=== PATIENT | female | born 1940 | race Caucasian/White ===

== ENCOUNTER 2023-10-19 00:21 | Inpatient (IN) | payer MEDICARE, OTHER ==
[2023-10-19] VITALS (7 sets, daily range): BP systolic 154–160; BP diastolic 69–74; TEMP 96.3–98.5; O2SAT 86–97
[~2023-10-19] VITALS: Ht 165.1 cm; Wt 79.5 kg
[2023-10-19] MEDS ORDERED: methylPREDNISolone SOD SUCC 125 MG/2 ML VIAL ONE (00:34)
[2023-10-19] MEDS: ALBUTEROL SULFATE 2.5 MG/3 ML NEBU NEB ONE ×2 (00:37→04:40)
[2023-10-19] MEDS: IPRATROPIUM BROMIDE 0.5 MG/2.5 ML NEBU NEB ONE ×2 (00:37→04:40)
[2023-10-19] MEDS ORDERED: IPRATROPIUM BROMIDE 0.5 MG/2.5 ML NEBU ONE ×2 (00:39→04:44)
[2023-10-19] MEDS ORDERED: ALBUTEROL SULFATE 2.5 MG/3 ML NEBU ONE ×2 (00:39→04:44)
[2023-10-19] MEDS: methylPREDNISolone SOD SUCC 125 MG/2 ML VIAL IV ONE (00:42)
[2023-10-19 00:46] LABS: BASOPHILS % (AUTO) 0.2 % (0.0-2.0); EOSINOPHILS % (AUTO) 0.4 % (0.0-7.0); HEMATOCRIT 32.2 % (31.2-41.9); HEMOGLOBIN 10.8 g/dL (10.9-14.3); LYMPHOCYTES # (AUTO) 1.6 K/uL (0.8-4.8); LYMPHOCYTES % (AUTO) 18.7 % (20.5-51.5); MEAN CORPUSCULAR HEMOGLOBIN 28.7 uug (24.7-32.8); MEAN CORPUSCULAR HGB CONC 33 g/dL (32.3-35.6); MEAN CORPUSCULAR VOLUME 86.1 fL (75.5-95.3); MONOCYTES # (AUTO) 1.2 K/uL (0.1-1.30); MONOCYTES % (AUTO) 14.2 % (0.0-11.0); NEUTROPHILS # (AUTO) 5.8 K/uL (1.8-8.9); NEUTROPHILS % (AUTO) 66.5 % (38.5-71.5); PLATELET COUNT (AUTO) 317 K/uL (179-408); RED BLOOD CELL COUNT(AUTO) 3.75 MIL/uL (3.63-4.92); RED CELL DISTRIBUTION WIDTH 15.5 % (12.3-17.7); WHITE BLOOD COUNT (AUTO) 8.7 K/uL (3.8-11.8)
[2023-10-19 00:47] LABS: DIFFERENTIAL COMMENT 1
[2023-10-19 01:03] LABS: CALCIUM 8.9 mg/dL (8.5-10.1); CARBON DIOXIDE 25 mmol/L (21-32); CHLORIDE 98 mmol/L (98-107); CREATININE 1.1 mg/dL (0.6-1.3); GLUCOSE 213 mg/dL (74-106); POTASSIUM 3.2 mmol/L (3.5-5.1); SODIUM SERUM 132 mmol/L (136-145); UREA NITROGEN, BLOOD 16 mg/dL (7-18)
[2023-10-19 01:12] LABS: CREATINE KINASE, TOTAL 87 U/L (26-192); NT-PRO BNP 3111 pg/mL (0-125)
[2023-10-19] MEDS ORDERED: POTASSIUM CHLORIDE 20 MEQ TAB.PRT.SR ONE (01:22)
[2023-10-19] MEDS: POTASSIUM CHLORIDE 20 MEQ TAB.PRT.SR PO ONE (01:24)
[2023-10-19] MEDS ORDERED: MORPHINE SULFATE 2 MG/1 ML DISP.SYRIN IVP PRN (01:45)
[2023-10-19] MEDS ORDERED: ALBUTEROL SULFATE 8 GM HFA.AER.AD IH PRN (01:45)
[2023-10-19] MEDS ORDERED: ONDANSETRON 4 MG/2 ML VIAL IV PRN (01:45)
[2023-10-19] MEDS ORDERED: BENZONATATE 100 MG CAPSULE ONE (04:40)
[2023-10-19] MEDS: BENZONATATE 100 MG CAPSULE PO ONE (04:42)
[2023-10-19] MEDS ORDERED: AZITHROMYCIN 500MG/ D5W 250ML IVPB **ER PYXIS ONLY IV ONE (06:14)
[2023-10-19] MEDS: IV NS 1000 ML 1,000 ML IV SCH (06:21)
[2023-10-19] MEDS: AZITHROMYCIN IV 500 MG in IV DEXTROSE 5% 250 ML IV SCH (06:22)
[2023-10-19] MEDS ORDERED: IV NS 1000 ML 1,000 ML IV PRN (07:08)
[2023-10-19] MEDS ORDERED: ATOR10TA PO (08:56)
[2023-10-19] MEDS ORDERED: HYDR50TA4 PO (08:56)
[2023-10-19] MEDS ORDERED: PROP120C54 PO (08:56)
[2023-10-19] MEDS ORDERED: OLME40TA12 PO (08:56)
[2023-10-19] MEDS ORDERED: ZOLP5TAB2 PO (08:56)
[2023-10-19] MEDS ORDERED: DULO60CA45 PO (08:56)
[2023-10-19] MEDS ORDERED: VIT1TABL46 PO (08:57)
[2023-10-19] MEDS ORDERED: AZITHROMYCIN IV 500 MG in IV DEXTROSE 5% 250 ML IV SCH (09:00)
[2023-10-19] MEDS: DOCUSATE SODIUM 100 MG CAPSULE PO SCH (09:30)
[2023-10-19] MEDS: HEPARIN SODIUM,PORCINE 5,000 UNITS/ML VIAL SQ SCH (09:32)
[2023-10-19] MEDS: FLUTICASONE/VILANTEROL 1 EACH BLST.W.DEV INH SCH (09:34)
[2023-10-19] MEDS: CEFTRIAXONE 1 G in IV DEXTROSE 5% 50 ML IV SCH (09:35)
[2023-10-19 11:30] LABS: BASOPHILS % (AUTO) 0.1 % (0.0-2.0); HEMATOCRIT 31.2 % (31.2-41.9); HEMOGLOBIN 10.2 g/dL (10.9-14.3); LYMPHOCYTES # (AUTO) 1.2 K/uL (0.8-4.8); LYMPHOCYTES % (AUTO) 18.1 % (20.5-51.5); MEAN CORPUSCULAR HEMOGLOBIN 28.1 uug (24.7-32.8); MEAN CORPUSCULAR HGB CONC 33 g/dL (32.3-35.6); MEAN CORPUSCULAR VOLUME 85.8 fL (75.5-95.3); MONOCYTES # (AUTO) 0.2 K/uL (0.1-1.30); MONOCYTES % (AUTO) 2.8 % (0.0-11.0); NEUTROPHILS # (AUTO) 5.1 K/uL (1.8-8.9); PLATELET COUNT (AUTO) 311 K/uL (179-408); RED BLOOD CELL COUNT(AUTO) 3.64 MIL/uL (3.63-4.92); RED CELL DISTRIBUTION WIDTH 15.5 % (12.3-17.7); WHITE BLOOD COUNT (AUTO) 6.5 K/uL (3.8-11.8)
[2023-10-19] MEDS ORDERED: ROSU20TA2 PO (11:36)
[2023-10-19] MEDS ORDERED: OLME1TAB16 PO (11:37)
[2023-10-19] MEDS ORDERED: HYDR-4077 PO (11:38)
[2023-10-19] MEDS ORDERED: METF-494 PO (11:41)
[2023-10-19] MEDS ORDERED: CLON-418 PO (11:42)
[2023-10-19] MEDS ORDERED: GABA300C PO (11:45)
[2023-10-19 11:47] LABS: ALANINE AMINOTRANSFERASE 20 U/L (14-59); ALKALINE PHOSPHATASE 56 U/L (50-136); ASPARTATE AMINOTRANSFERASE 12 U/L (15-37); BILIRUBIN,TOTAL 0.4 mg/dL (0.2-1.0); CALCIUM 9.3 mg/dL (8.5-10.1); CARBON DIOXIDE 30 mmol/L (21-32); CHLORIDE 102 mmol/L (98-107); CREATININE 1.1 mg/dL (0.6-1.3); GLUCOSE 258 mg/dL (74-106); MAGNESIUM 1.5 mg/dL (1.8-2.4); PHOSPHOROUS 2.4 mg/dL (2.5-4.9); POTASSIUM 3.9 mmol/L (3.5-5.1); SODIUM SERUM 137 mmol/L (136-145); TOTAL PROTEIN, SERUM 6.2 g/dL (6.4-8.2); UREA NITROGEN, BLOOD 17 mg/dL (7-18)
[2023-10-19 12:37] LABS: DIFFERENTIAL COMMENT 1
[2023-10-19 12:56] LABS: IRON, SERUM 10 ug/dL (50-175)
[2023-10-19 13:02] LABS: ALBUMIN 2.8 g/dL (3.4-5.0); CHOLESTEROL 122 mg/dL (<200); TRIGLYCERIDES 102 MG/DL (30-150)
[2023-10-19 13:03] LABS: HDL CHOLESTEROL 41 mg/dL (40-60)
[2023-10-19] MEDS: hydrALAZINE HCL 20 MG/1 ML VIAL IV PRN (13:08)
[2023-10-19] MEDS: MAGNESIUM SULFATE/D5W 100 ML IV SCH (14:30)
[2023-10-19] MEDS: NEUTRA PHOS PACKET PO ONE (14:30)
[2023-10-19] MEDS: hydrALAZINE HCL 50 MG TABLET PO SCH (20:08)
[2023-10-19] MEDS: ZOLPIDEM 5 MG TABLET PO SCH (20:09)
[2023-10-19] MEDS: FUROSEMIDE 20 MG/2 ML VIAL IV SCH (20:09)
[2023-10-19] MEDS: ALBUTEROL SULFATE 2.5 MG/3 ML NEBU NEB PRN (20:19)
[2023-10-20] VITALS (12 sets, daily range): BP systolic 137–183; BP diastolic 58–90; TEMP 97.5–98.6; O2SAT 97–99
[2023-10-20] MEDS: ACETAMINOPHEN 325 MG TABLET PO PRN (02:12)
[2023-10-20] MEDS: GUAIFENESIN/CODEINE 5 ML LIQUID UDC PO PRN (02:38)
[2023-10-20 07:08] LABS: HEMOGLOBIN 10.6 g/dL (10.9-14.3); LYMPHOCYTES # (AUTO) 2.2 K/uL (0.8-4.8); LYMPHOCYTES % (AUTO) 18.6 % (20.5-51.5); MEAN CORPUSCULAR HEMOGLOBIN 28.5 uug (24.7-32.8); MEAN CORPUSCULAR HGB CONC 33 g/dL (32.3-35.6); MEAN CORPUSCULAR VOLUME 86.3 fL (75.5-95.3); MONOCYTES # (AUTO) 1.3 K/uL (0.1-1.30); MONOCYTES % (AUTO) 11.1 % (0.0-11.0); NEUTROPHILS # (AUTO) 8.4 K/uL (1.8-8.9); NEUTROPHILS % (AUTO) 70.3 % (38.5-71.5); PLATELET COUNT (AUTO) 410 K/uL (179-408); RED BLOOD CELL COUNT(AUTO) 3.71 MIL/uL (3.63-4.92); RED CELL DISTRIBUTION WIDTH 15.5 % (12.3-17.7)
[2023-10-20 07:20] LABS: ALANINE AMINOTRANSFERASE 38 U/L (14-59); ALBUMIN 2.5 g/dL (3.4-5.0); ALKALINE PHOSPHATASE 57 U/L (50-136); ASPARTATE AMINOTRANSFERASE 37 U/L (15-37); BILIRUBIN,TOTAL 0.3 mg/dL (0.2-1.0); CALCIUM 9.2 mg/dL (8.5-10.1); CARBON DIOXIDE 24 mmol/L (21-32); CHLORIDE 103 mmol/L (98-107); CREATININE 1.3 mg/dL (0.6-1.3); GLUCOSE 150 mg/dL (74-106); PHOSPHOROUS 3.6 mg/dL (2.5-4.9); POTASSIUM 3.7 mmol/L (3.5-5.1); SODIUM SERUM 136 mmol/L (136-145); TOTAL PROTEIN, SERUM 6.5 g/dL (6.4-8.2); UREA NITROGEN, BLOOD 20 mg/dL (7-18)
[2023-10-20 07:21] LABS: DIFFERENTIAL COMMENT 1
[2023-10-20] MEDS: DULOXETINE 60 MG CAPSULE.DR PO SCH (08:51)
[2023-10-20] MEDS: GABAPENTIN 300 MG CAPSULE PO SCH (08:51)
[2023-10-20] MEDS: FOLIC ACID/VITAMIN B COMP W-C TABLET PO SCH (08:51)
[2023-10-20] MEDS: LOSARTAN POTASSIUM 50 MG TABLET PO SCH (08:52)
[2023-10-20] MEDS ORDERED: HYDROCHLOROTHIAZIDE 12.5 MG CAPSULE PO SCH (09:00)
[2023-10-20] MEDS: METFORMIN XR 500 MG TAB.SR.24H PO SCH (18:12)
[2023-10-20 18:48] LABS: *BILIRUBIN,URIN NEGATIVE (NEGATIVE); *BLOOD, URINE NEGATIVE (NEGATIVE); *CLARITY,URINE CLEAR (CLEAR); *COLOR,URINE YELLOW (YELLOW); *KETONES,URINE NEGATIVE (NEGATIVE); *PROTEIN,URINE NEGATIVE (NEGATIVE); *UROBILINOGEN,URINE 0.2 E.U./dl (NORMAL); LEUKOCYTE ESTERASE ,URINE NEGATIVE (NEGATIVE); NITRITE, URINE NEGATIVE (NEGATIVE); PH,URINE 5.5 (5.0-8.0); UGLUCOSE NEGATIVE (NEGATIVE)
[2023-10-21 04:00] VITALS: BP 153/71; TEMP 97.6; O2SAT 97
[2023-10-21 06:00] VITALS: BP 143/65; TEMP 98.7; O2SAT 97
[2023-10-21 07:23] LABS: BASOPHILS % (AUTO) 0.2 % (0.0-2.0); EOSINOPHILS % (AUTO) 0.2 % (0.0-7.0); HEMATOCRIT 29.9 % (31.2-41.9); HEMOGLOBIN 9.9 g/dL (10.9-14.3); LYMPHOCYTES # (AUTO) 4.2 K/uL (0.8-4.8); LYMPHOCYTES % (AUTO) 33.4 % (20.5-51.5); MEAN CORPUSCULAR HEMOGLOBIN 28.2 uug (24.7-32.8); MEAN CORPUSCULAR HGB CONC 33 g/dL (32.3-35.6); MEAN CORPUSCULAR VOLUME 85.6 fL (75.5-95.3); MONOCYTES # (AUTO) 1.1 K/uL (0.1-1.30); MONOCYTES % (AUTO) 8.3 % (0.0-11.0); NEUTROPHILS # (AUTO) 7.3 K/uL (1.8-8.9); NEUTROPHILS % (AUTO) 57.9 % (38.5-71.5); PLATELET COUNT (AUTO) 415 K/uL (179-408); RED BLOOD CELL COUNT(AUTO) 3.49 MIL/uL (3.63-4.92); RED CELL DISTRIBUTION WIDTH 15.7 % (12.3-17.7); WHITE BLOOD COUNT (AUTO) 12.7 K/uL (3.8-11.8)
[2023-10-21 07:44] LABS: DIFFERENTIAL COMMENT 1
[2023-10-21 07:49] LABS: CALCIUM 9.3 mg/dL (8.5-10.1); CARBON DIOXIDE 28 mmol/L (21-32); CHLORIDE 103 mmol/L (98-107); CREATININE 1.3 mg/dL (0.6-1.3); GLUCOSE 126 mg/dL (74-106); MAGNESIUM 1.7 mg/dL (1.8-2.4); PHOSPHOROUS 3.2 mg/dL (2.5-4.9); POTASSIUM 3.5 mmol/L (3.5-5.1); SODIUM SERUM 139 mmol/L (136-145); UREA NITROGEN, BLOOD 23 mg/dL (7-18)
[2023-10-21 07:54] VITALS: BP 158/68; TEMP 97.6; O2SAT 98
[2023-10-21 11:25] VITALS: BP 111/51; TEMP 97.8; O2SAT 96
[2023-10-21 11:44] VITALS: O2SAT 97
[2023-10-21] MEDS ORDERED: AZIT500T PO (12:06)
[2023-10-21] MEDS ORDERED: GUAI5SYR4 PO (12:06)
[2023-10-21] MEDS ORDERED: FLUT1BLS INH (12:06)
[2023-10-21] MEDS ORDERED: ALBU1.25 NEB (12:06)
[2023-10-21] MEDS ORDERED: CEFD300C3 PO (12:06)
[2023-10-21] MEDS: MAGNESIUM OXIDE 400 MG TABLET PO ONE (12:21)
[2023-10-21] MEDS ORDERED: LOSA50TA3 PO (12:39)
[2023-10-22] MEDS ORDERED: AZITHROMYCIN IV 500 MG in IV DEXTROSE 5% 250 ML IV SCH (06:00)
[2023-10-22] MEDS ORDERED: AZITHROMYCIN 250 MG TABLET PO SCH (06:00)
[2023-10-22 11:00] VITALS: O2SAT 97
== END 2023-10-21 13:20 | disposition home or self-care (01) | DRG 871 ==
LOC: ER 00:25 → MEDSURG3 01:32 → TELE3 08:30
PROVIDERS: ADMIT Internal Medicine; ATTEND Internal Medicine
PROC: 05HY33Z Insertion of Infusion Device into Upper Vein, Percutaneous Approach (ICD-10-PCS; principal; 2023-10-20)
DX: A41.9 Sepsis, unspecified organism (principal); J18.9 Pneumonia, unspecified organism; J96.01 Acute respiratory failure with hypoxia; E87.1 Hypo-osmolality and hyponatremia; I13.10 Hypertensive heart and chronic kidney disease without heart failure, with stage 1 through stage 4 chronic kidney disease, or unspecified chronic kidney disease; N18.30 Chronic kidney disease, stage 3 unspecified; E11.22 Type 2 diabetes mellitus with diabetic chronic kidney disease; E11.40 Type 2 diabetes mellitus with diabetic neuropathy, unspecified; G47.00 Insomnia, unspecified; F32.A Depression, unspecified; Z79.899 Other long term (current) drug therapy; E66.9 Obesity, unspecified; Z68.28 Body mass index [BMI] 28.0-28.9, adult; E78.5 Hyperlipidemia, unspecified; Z91.81 History of falling; E86.1 Hypovolemia; J45.909 Unspecified asthma, uncomplicated; Z87.891 Personal history of nicotine dependence; I35.8 Other nonrheumatic aortic valve disorders; M19.90 Unspecified osteoarthritis, unspecified site; Z96.641 Presence of right artificial hip joint; D64.9 Anemia, unspecified
CPT/HCPCS: 36415; 71045; 83550; 83605; 83735; 84100; 84484; 85025; 87040; 93005; 93307; 94640; 94760; G0378; J0360; J0456; J0696; J1644; J1940; J2930; J3475; J3590; J7040; J7050